=== PATIENT | male | born 1960 | race Caucasian/White ===

== ENCOUNTER 2022-12-28 12:43 | Emergency (ER) | payer MEDICAID, OTHER ==
[~2022-12-28] VITALS: Ht 170.2 cm; Wt 77.1 kg
[2022-12-28] MEDS ORDERED: HYDROMORPHONE 1 MG/1 ML DISP.SYRIN IM ONE (13:30)
[2022-12-28] MEDS ORDERED: ONDANSETRON 4 MG TAB.RAPDIS PO ONE (13:30)
[2022-12-28] MEDS ORDERED: HYDROMORPHONE 1 MG/1 ML DISP.SYRIN ONE (13:30)
[2022-12-28] MEDS ORDERED: ONDANSETRON 4 MG TAB.RAPDIS ONE (13:40)
[2022-12-28] MEDS ORDERED: HYDR-3980 PO (13:57)
[2022-12-28 14:02] VITALS: BP 131/79; TEMP 97.8; O2SAT 100
[2022-12-28] MEDS ORDERED: HYDR-3976 PO (15:25)
== END 2022-12-28 14:03 | disposition home or self-care (01) ==
LOC: ER 12:43
DX: S30.22XA Contusion of scrotum and testes, initial encounter (principal); G89.18 Other acute postprocedural pain; X58.XXXA Exposure to other specified factors, initial encounter; Y93.89 Activity, other specified; Y92.89 Other specified places as the place of occurrence of the external cause; Y99.8 Other external cause status
CPT/HCPCS: 99283; 96372; Q0162; J1170